=== PATIENT | female | born 1955 | race Caucasian/White ===

== ENCOUNTER 2017-12-01 12:54 | Day surgery (SDC) | payer BC ==
[~2017-12-01 12:54] MED LIST: LACTATED RINGER'S 1,000 ML IV
[2017-12-01] MEDS ORDERED: OXYCODONE/ACETAMINOPHEN (5/325) TAB PO (15:00)
[2017-12-01] MEDS ORDERED: DIPHENHYDRAMINE 50 MG INJ IV (15:00)
[2017-12-01] MEDS ORDERED: METOCLOPRAMIDE 10 MG INJ IV (15:00)
[2017-12-01] MEDS ORDERED: ALBUTEROL 0.083% (NEB) 2.5 MG/3 ML AMP HHN (15:00)
[2017-12-01] MEDS ORDERED: MEPERIDINE 25 MG INJ IV (15:00)
[2017-12-01] MEDS ORDERED: MIDAZOLAM 1 MG/ML 2 ML INJ IV (15:00)
[2017-12-01] MEDS ORDERED: FENTAnyl 50 MCG/ML VIAL IV ×3 (15:00)
[2017-12-01] MEDS ORDERED: EPHEDrine SULFATE 50 MG/5 ML SYG IV (15:00)
[2017-12-01] MEDS ORDERED: LABETALOL HCL 20MG INJ IV (15:00)
[2017-12-01] MEDS ORDERED: HYDROmorphONE (0.2 MG/ML) 10ML SYG IV ×3 (15:00)
[2017-12-01] MEDS ORDERED: hydrALAzine 20 MG INJ IV (15:00)
[2017-12-01] MEDS ORDERED: KETOROLAC 30 MG INJ IV (15:00)
[2017-12-01] MEDS ORDERED: ONDANSETRON 4 MG INJ (17:05)
[2017-12-01] MEDS ORDERED: PROPOFOL 20 ML (17:05)
[2017-12-01] MEDS ORDERED: METOCLOPRAMIDE 10 MG INJ (17:06)
[2017-12-01] MEDS ORDERED: FENTAnyl 50 MCG/ML VIAL (17:10)
[2017-12-01] MEDS ORDERED: EPHEDrine SULFATE 50 MG/5 ML SYG (17:31)
[2017-12-01] MEDS ORDERED: KETOROLAC 30 MG INJ (17:59)
[2017-12-01] MEDS: ONDANSETRON 4 MG INJ IV (18:19)
[2017-12-01] MEDS: OXYCODONE/ACETAMINOPHEN (5/325) TAB PO (18:20)
== END 2017-12-01 18:55 | disposition home or self-care (01) ==
LOC: SDS 12:54
DX: N84.0 Polyp of corpus uteri (principal)
CPT/HCPCS: 58558